=== PATIENT | male | born 1995 | race Two or more races ===

== ENCOUNTER 2018-08-25 13:39 | Emergency (ER) | payer OTHER ==
[~2018-08-25] VITALS: Ht 182.9 cm; Wt 83.9 kg
[2018-08-25 15:47] VITALS: BP 145/71
[2018-08-25] MEDS ORDERED: ACETAMINOPHEN 500 MG TAB PO ONE (16:45)
== END 2018-08-25 16:57 | disposition home or self-care (01) ==
LOC: ER 13:39
DX: M54.5 Low back pain (principal); V49.49XA Driver injured in collision with other motor vehicles in traffic accident, initial encounter; Y93.89 Activity, other specified; Y99.8 Other external cause status; Y92.89 Other specified places as the place of occurrence of the external cause
CPT/HCPCS: 72100